=== PATIENT | male | born 1960 | race Caucasian/White ===

== ENCOUNTER 2017-12-21 07:45 | Day surgery (SDC) | payer OTHER, BC ==
[2017-12-20 11:58] VITALS: BMI 23.7
--- NOTE | 2017-12-21 08:15 | HP ---
Satellite [facility] - Chief Complaint Chief Complaint: right shoulder pain - Past Medical History Allergies/Adverse Reactions: Allergies Allergy/AdvReac Type Severity Reaction Status Date / Time No Known Allergies Allergy Unverified 12/20/17 11:48 - Current Medications Current Medications: Home Medications Medication Instructions Recorded Aspirin [ASA -] 81 mg PO DAILY 01/08/16 Tadalafil [Cialis] 5 mg PO PRN PRN 12/20/17 Trazodone HCl 50 - 100 mg PO HS 12/20/17 Hydrocodone/Acetaminophen [[place] 1 each PO Q6H PRN #40 tablet MDD 4 12/21/17 5-325 Tablet] Satellite Physical Exam - Physical Examination Vital Signs: Vital Signs Period Temp Pulse Resp BP Sys/Perkins Pulse Ox Last 24 Hr 97.7 F-97.7 F 87-87 20-20 124-124/75-75 General Appearance: Well Nourished, Well Developed, Alert & Oriented x3 ENT: Clear Lung: Normal air movement Heart: Regular rate & rhythm Extremities: Other (right shoulder- + ttp, decr rom, + neer, + mujica, + empty can, nvi MRI + rct, impingement) Neurological: Intact, Alert, Oriented Satellite Impression/Plan - Impression/Plan Impression: right shoulder rct Operative Procedure: right shoulder arthroscopy, SAD, possible rct Date to be Performed: 12/21/17
[2017-12-21] MEDS ORDERED: ROPIVACAINE HCL 0.5% 30ML VIAL ONE (10:00)
[2017-12-21] MEDS ORDERED: MIDAZOLAM HCL 2 MG/2 ML SINGLE DOSE VIAL ONE ×2 (10:01)
[2017-12-21] MEDS ORDERED: ceFAZolin SODIUM 1 GM VIAL IVPB ONE (11:30)
[2017-12-21] MEDS ORDERED: DEXAMETHASONE SOD PHOSPHATE 4 MG/1 ML VIAL ONE (11:38)
--- NOTE | 2017-12-21 12:26 | OP ---
Operative Note - Note: Operative Date: 12/21/17 ([facility]) Pre-Operative Diagnosis: right shoulder rct, impingement Operation: right shoulder arthroscopy with RCR, SAD Post-Operative Diagnosis: Same as Pre-op Surgeon: Amarjit Lau Adult Neurologist: Manuel Lizama Anesthesiologist/DINKEY ENGINE OPERATOR: Emanuel Bolden Anesthesia: General, Local Specimens Removed: shavings Estimated Blood Loss (mls): 25 Operative Report Dictated: Yes
[2017-12-21 13:17] VITALS: TEMP 98
[2017-12-21 15:41] VITALS: BP 124/68; PULSE 80
--- NOTE | 2017-12-22 01:59 | OP ---
DATE OF OPERATION: 12/21/2017 PREOPERATIVE DIAGNOSIS: Right shoulder acromioclavicular joint arthritis, subacromial impingement, and rotator cuff tear. POSTOPERATIVE DIAGNOSIS: Right shoulder acromioclavicular joint arthritis, subacromial impingement, and rotator cuff tear. PROCEDURE: Right shoulder arthroscopy, subacromial decompression, distal clavicle excision, and arthroscopic rotator cuff repair. SURGEON: Mesha Morris MD NIGHTCLUB MANAGER: JACINTA Andre ANESTHESIOLOGIST: Emanuel Bolden CRNA ANESTHESIA: Right interscalene block and LMA anesthesia. DRAINS: None. COMPLICATIONS: None. BLOOD LOSS: Minimal. BLOOD GIVEN: None. FLUID REPLACEMENT: 700 mL. INDICATIONS: The patient is a 57-year-old male with a preoperative diagnosis of a right shoulder subacromial impingement, AC joint arthritis, and a rotator cuff tear that he believes occurred 18 years ago. After understanding the potential risks, complications, alternatives, benefits of surgery versus nonsurgical treatment, the patient elected to undergo the procedure. He understands that he may not have complete relief of his symptoms. He may not gain full or even adequate range of motion, strength, or function. DESCRIPTION OF PROCEDURE: The patient was brought back to the operating room and IV sedation was given with 2 g of IV Ancef given. A right interscalene block was performed and LMA anesthesia was induced. He was placed in the beach chair position with ample padding throughout. Right upper extremity was prepped and draped in the sterile fashion. The bony landmarks were marked out with a marking pen. A posterior portal was established. Diagnostic arthroscopy was performed. The patient was seen to have a complete rotator cuff tear. I was able to see the acromion from the glenohumeral joint. The arthritis, however, was not as bad as expected. The patient's glenohumeral joint looked good. The patient's humeral head looked fine. 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 The labrum was frayed. The area was copiously irrigated and washed out. Our attention was turned to the subacromial space. The lateral portal was established under direct visualization using a spinal needle and ArthroCare wand was used to do an extensive debridement of the subacromial and subdeltoid bursitis. After the soft tissue bursectomy, this revealed a large subacromial and subclavicular spur. These were taken down with a 5.5-mm oval bur, straightened, fine-tuned, and reversed and then the shaver was introduced to fine tune it further and remove soft tissue and bony debris. After the extensive debridement/bursectomy, this revealed a crescent-shaped rotator cuff tear involving the entire supraspinatus and infraspinatus. The anterior most portion was quite frayed. The biceps tendon was completely gone. This area was debrided, but using the grasper, the patient's rotator cuff looked quite repairable. It had good tissue. I was able to pull on it. It did not fall apart. It was not friable. I was able to bring it down to its point of insertion in the humeral head. Therefore, under direct visualization, four FiberWire sutures were placed through the rotator cuff using the Scorpion needle passer. Additional lateral bursectomy was performed by outlining the bed of the rotator cuff by decorticating it a bit with a bur and then the shaver. I then used 2 SwiveLock Arthrex bone anchors with 2 FiberWires in each, first the anterior and then then posterior one was put down in the standard fashion. This brought down the rotator cuff quite well. It was an excellent repair considering that the tear was 18 years ago. It was certainly better than expected. Photographs were taken. The arm was moved. The rotator cuff moved as a unit with the humerus. The area was copiously irrigated and washed out. All excess saline and debris were removed. The arthroscopy portals were closed with 3-0 nylon sutures and covered with Aquacel. The patient's right upper extremity was washed and dried, put into a shoulder immobilizer. Total operative time was about 50 minutes. There were no complications during the case. The patient tolerated the procedure well and the patient was brought to the ambulatory recovery room in stable condition. MESHA MORRIS M.D. [id number]
== END 2017-12-21 14:40 | disposition home or self-care (01) ==
LOC: JASU-SURG 07:45
PROVIDERS: ATTEND Orthopaedic Surgery
PROC: 0LQ14ZZ Repair Right Shoulder Tendon, Percutaneous Endoscopic Approach (ICD-10-PCS; 2017-12-21)
PROC: 0PB94ZZ Excision of Right Clavicle, Percutaneous Endoscopic Approach (ICD-10-PCS; 2017-12-21)
PROC: 0RNJ4ZZ Release Right Shoulder Joint, Percutaneous Endoscopic Approach (ICD-10-PCS; principal; 2017-12-21 09:30)
DX: M75.41 Impingement syndrome of right shoulder (principal); M75.101 Unspecified rotator cuff tear or rupture of right shoulder, not specified as traumatic; M19.011 Primary osteoarthritis, right shoulder
CPT/HCPCS: 88304-TC; 94760

== ENCOUNTER 2020-05-06 10:36 | Day surgery (SDC) | payer OTHER, BC ==
[2020-05-06 07:55] VITALS: BMI 25.0
[2020-05-06] MEDS ORDERED: BUPIVACAINE HCL/PF 0.5% (5MG/ML) 10 ML VIAL ONE (11:36)
[2020-05-06] MEDS ORDERED: LIDOCAINE 1%/EPI 1:100000 (20 ML MULTI DOSE VIAL) ONE (11:43)
[2020-05-06] MEDS ORDERED: LIDOCAINE HCL/PF 2% SDV 5ML VIAL ONE (11:51)
[2020-05-06] MEDS ORDERED: MIDAZOLAM HCL 2 MG/2 ML SINGLE DOSE VIAL ONE (11:51)
[2020-05-06] MEDS ORDERED: PROPOFOL 20 ML ONE (11:51)
[2020-05-06] MEDS ORDERED: ONDANSETRON 4 MG/2 ML VIAL ONE (12:38)
[2020-05-06] MEDS ORDERED: ceFAZolin SODIUM 1 GM VIAL ONE (12:38)
[2020-05-06] MEDS ORDERED: DEXAMETHASONE SOD PHOSPHATE 4 MG/1 ML VIAL ONE (12:38)
[2020-05-06] MEDS ORDERED: LIDOCAINE 1%/EPI 1:100000 (20 ML MULTI DOSE VIAL) IJ ONE (12:46)
[2020-05-06] MEDS ORDERED: BUPIVACAINE HCL/PF 0.5% (5MG/ML) 10 ML VIAL IJ ONE (13:10)
[2020-05-06 14:30] VITALS: TEMP 97.5
[2020-05-06 16:30] VITALS: BP 123/72; PULSE 64
== END 2020-05-06 15:30 | disposition home or self-care (01) ==
LOC: FASU 10:36
PROVIDERS: ATTEND Orthopaedic Surgery
PROC: 0SBC4ZZ Excision of Right Knee Joint, Percutaneous Endoscopic Approach (ICD-10-PCS; 2020-05-06)
PROC: 0SBC4ZZ Excision of Right Knee Joint, Percutaneous Endoscopic Approach (ICD-10-PCS; principal; 2020-05-06 12:32)
DX: S83.231A Complex tear of medial meniscus, current injury, right knee, initial encounter (principal); X58.XXXA Exposure to other specified factors, initial encounter; Y93.9 Activity, unspecified; Y92.9 Unspecified place or not applicable; Y99.9 Unspecified external cause status
CPT/HCPCS: 94760

== ENCOUNTER 2020-07-23 05:01 | Day surgery (SDC) | payer OTHER, BC ==
[2020-07-22 16:47] VITALS: BMI 25.7
--- NOTE | 2020-07-23 09:47 | HP ---
Satellite [facility] - Chief Complaint Chief Complaint: left shoulder pain - Past Medical History Allergies/Adverse Reactions: Allergies Allergy/AdvReac Type Severity Reaction Status Date / Time No Known Allergies Allergy Unverified 07/23/20 09:38 - Current Medications Current Medications: Home Medications Medication Instructions Recorded traZODone HCL [Trazodone HCl] 50 mg PO HS 12/20/17 Aspirin [ASA -] 81 mg PO DAILY 07/22/20 Hydrocodone/Acetaminophen 1 each PO Q6H #20 tablet MDD 4 07/23/20 [Hydrocodone-Acetamin 5-325 mg] Satellite Physical Exam - Physical Examination Vital Signs: Vital Signs Period Temp Pulse Resp BP Sys/Perkins Pulse Ox Last 24 Hr 97.8 F 65 16 140/80 98-98 General Appearance: Well Nourished, Well Developed, Alert & Oriented x3 ENT: Clear Lung: Normal air movement Extremities: Other (left shoulder- + ttp, decr rom, + neer, + mujica, nvi) Neurological: Intact, Alert, Oriented Satellite Impression/Plan - Impression/Plan Impression: left shoulder impingement, rct Operative Procedure: left shoulder arthroscopy with SAD and possible RCR Date to be Performed: 07/23/20
[2020-07-23] MEDS ORDERED: MIDAZOLAM HCL 2 MG/2 ML SINGLE DOSE VIAL ONE ×2 (10:32)
[2020-07-23] MEDS ORDERED: SUCCINYLCHOLINE CHLORIDE 200 MG/10 ML SYRINGE ONE (12:20)
[2020-07-23] MEDS ORDERED: PROPOFOL 20 ML ONE ×2 (12:20)
[2020-07-23] MEDS ORDERED: ePHEDrine SULFATE 50 MG/1 ML AMPULE ONE (12:46)
[2020-07-23] MEDS ORDERED: ceFAZolin SODIUM 1 GM VIAL IVPB ONE (12:52)
--- NOTE | 2020-07-23 13:49 | OP ---
Operative Note - Note: Operative Date: 07/23/20 ([facility]) Pre-Operative Diagnosis: left shoulder rct, impingement Operation: left shoulder arthroscopy with RCR, SAD Post-Operative Diagnosis: Same as Pre-op Surgeon: Amarjit Lau Evening Anchor: Manuel Lizama Anesthesia: General, Local Specimens Removed: shavings Estimated Blood Loss (mls): 10
[2020-07-23] MEDS ORDERED: oxyCODONE HCL 5 MG TABLET PO PRN ×2 (15:40)
[2020-07-23] MEDS ORDERED: ONDANSETRON 4 MG/2 ML VIAL IVPUSH PRN (15:40)
[2020-07-23] MEDS ORDERED: LACTATED RINGERS SOLUTION 1,000 ML IV SCH (15:45)
[2020-07-23 16:51] VITALS: TEMP 97.8
[2020-07-23 16:58] VITALS: BP 135/80; PULSE 75
--- NOTE | 2020-07-23 20:37 | OP ---
DATE OF OPERATION: DATE OF DICTATION: 07/23/2020 PREOPERATIVE DIAGNOSIS: Left shoulder impingement syndrome and rotator cuff tear. POSTOPERATIVE DIAGNOSIS: Left shoulder impingement syndrome and rotator cuff tear. PROCEDURE: Left shoulder arthroscopy, subacromial decompression, distal clavicle excision, and arthroscopic rotator cuff repair. SURGEON: Mesha Morris M.D. BLASTING CLAY MINER: JACINTA Andre. ANESTHESIOLOGIST: Gal Savage MD. ANESTHESIA: Left interscalene block with LMA anesthesia DRAINS: None. COMPLICATIONS: None. BLOOD LOSS: Minimal. BLOOD GIVEN: None. FLUID REPLACEMENT: 1500 mL Plasmalyte. INDICATION: The patient is a 60-year-old male with preoperative diagnosis of left shoulder impingement syndrome and rotator cuff tear. He did have his left shoulder rotator cuff repaired 20 years ago. After understanding the potential risks, complications, alternatives, benefits to surgery versus nonsurgical treatment, the patient elected to undergo this procedure. DESCRIPTION OF PROCEDURE; The patient was brought to the operating room, peripheral IV placed, IV sedation given, 2 g of IV Ancef was given. A left interscalene block was performed. LMA anesthesia was induced. He was placed into the beach chair position with ample padding throughout. I put the left shoulder through a manipulation under anesthesia, and there were no particularly tight points. The left upper extremity was then prepped and draped in sterile fashion. The bony landmarks are marked out with a marking pen. The posterior portal was established. A diagnostic glenohumeral arthroscopy was performed. Patient was seen to have some arthritis of the glenohumeral joint more in the glenoid. The labrum was degenerative. The patient had a clear, full-thickness tear of the rotator cuff, but there was a crescent shaped portion of rotator cuff which was still intact laterally. This is more of the anterior aspect of the supraspinatus. The biceps tendon was intact. Next our attention turned to the subacromial space. The patient had a lateral portal established under direct visualization, using a spinal needle, a number 15-blade, and a green cannula. Patient had a lot of scar tissue from the previous surgery and some bursitis. This was all removed with a combination of the ArthroCare wand and straight shaver. Patient had a large, sharp subacromial bony spur and moderate sized, more rounded distal subclavicular spur. These were both taken down with a 5.5-mm oval bur and fine-tuned . Then with the straight shaver, once the subacromial decompression was done, the top surface of the rotator cuff was partially debrided with the straight shaver and the full thickness rotator cuff visualized from the bursal side. Again, it was crescent shaped, it was able to be mobilized, we could use the grasper to bring it down laterally quite well, quite easily. The area was cleaned up with the shaver. It was debrided. The bony bed debrided, and previous Fiberwire sutures were also debrided. Next, using the arthroscopic technique, we put in 5 Fiberwires using the [email or web address] needle passer. We then fed the posterior 4 tails through the Arthrex Swivelock anchor and brought it down to the humeral head. This closed the posterior 40% of the tear. We then did the same with the anterior 6 tails through another Swivelock anchor; this closed the anterior 60% of the tear. Overall it came down quite nicely. It covered the entire head. It moved as a unit with humerus and quality of repair was quite good. The arthroscope was irrigated, washed out. All excess saline, and instrumentation, and debris removed. The arthroscopy portal was closed with 3-0 nylon sutures. The area was then washed and dried, covered with Aquacel dressing. He was put into a shoulder immobilizer. Total operative time was about 1 hour. He was extubated and brought to the ambulatory recovery room in stable condition. MESHA MORRIS M.D. [id number]
--- NOTE | 2020-07-30 17:48 | PATH ---
Surgical Pathology Report Patient Name: MAYRA GALVAN Med. Rec. #: [id number] /Age/Gender: 1960 (Age: 60) / M Account: [id number] Location: [facility] SURGICAL Taken: 07/23/2020 Received: 07/24/2020 Reported: 07/30/2020 Physicians: Amarjit Lau M.D. Specimen(s) Received LEFT SHOULDER SHAVINGS Clinical History Tear left shoulder Final Diagnosis SHOULDER SHAVINGS, LEFT, ARTHROSCOPY: FRAGMENTS OF BENIGN BONE, CARTILAGE, DENSE FIBROCONNECTIVE TISSUE, ADIPOSE TISSUE, AND SKELETAL MUSCLE. Electronically Signed Jaylin Lake M.D. Gross Description Received in formalin, labeled "left shoulder shavings," is a 5.0 x 3.5 x 0.6 cm. aggregate of limon-yellow soft tissue fragments. A cash application representative portion is submitted in one cassette. 07/25/2020 saudi07/25/2020
== END 2020-07-23 17:00 | disposition home or self-care (01) ==
LOC: JASU-SURG 05:01
PROVIDERS: ATTEND Orthopaedic Surgery
PROC: 0RNK4ZZ Release Left Shoulder Joint, Percutaneous Endoscopic Approach (ICD-10-PCS; 2020-07-23)
PROC: 0PBB4ZZ Excision of Left Clavicle, Percutaneous Endoscopic Approach (ICD-10-PCS; 2020-07-23)
PROC: 0LQ24ZZ Repair Left Shoulder Tendon, Percutaneous Endoscopic Approach (ICD-10-PCS; principal; 2020-07-23 11:30)
DX: M75.122 Complete rotator cuff tear or rupture of left shoulder, not specified as traumatic (principal); M75.42 Impingement syndrome of left shoulder
CPT/HCPCS: 88304-TC; 94760